=== PATIENT | female | born 1980 | race Caucasian/White ===

== ENCOUNTER → 2016-06-16 | Outpatient (CLI) | payer OTHER ==
--- NOTE | 2016-06-20 10:26 | MM ---
Reason for exam: screening (asymptomatic). Baseline mammogram. History: Patient is nulliparous. Taking progesterone for 10 years beginning at age 25. Physical Findings: Nurse did not find any significant physical abnormalities on exam. MG Screening Mammo w CAD Bilateral CC and MLO view(s) were taken. The breast tissue is extremely dense which could obscure a lesion on mammography. Benign calcifications. There is no discrete abnormality. No significant changes when compared with prior studies. ASSESSMENT: Benign, BI-RAD 2 RECOMMENDATION: Routine screening mammogram of both breasts in 1 year.
== END | disposition home or self-care (01) ==
LOC: RADMAMWWP 07:03
PROVIDERS: ATTEND Obstetrics & Gynecology
DX: Z12.31 Encounter for screening mammogram for malignant neoplasm of breast (principal)

== ENCOUNTER → 2016-11-15 | Outpatient (CLI) | payer OTHER | END | disposition home or self-care (01) | LOC: LABWHC1 13:41 | PROVIDERS: ATTEND Obstetrics & Gynecology | DX: N91.2 Amenorrhea, unspecified (principal) | CPT/HCPCS: 36415; 84702 ==

== ENCOUNTER → 2017-01-09 | Outpatient (CLI) | payer OTHER ==
--- NOTE | 2017-01-09 15:11 | US ---
EXAMINATION TYPE: US thyroid st tissue head/neck DATE OF EXAM: 01/09/2017 COMPARISON: NONE CLINICAL HISTORY: 36-year-old female R22.0 Swelling of neck. Fatigue, joint pain, neck swelling, diff iculty breathing TECHNIQUE: Multiple sonographic images of the thyroid gland are obtained. FINDINGS: GLAND SIZE: Right Lobe: 5.7 x 1.7 x 1.9 cm Overall Parenchyma: homogenous Left Lobe: 4.6 x 1.3 x 1.9 cm Overall Parenchyma: homogeneous Isthmus Thickness: 0.3 cm NODULES RIGHT: # of nodules measured on right: 0 LEFT: # of nodules measured on left: 1 1. 0.7 X 0.4 x 0.6 cm cystic lesion with some internal nodularity at the upper pole with well-defin ed margins. This nodule is wider than tall and shows intranodular vascularity. Prior size: no previous ISTHMUS: # of nodules measured in the isthmus: 0 Bilateral neck scanned, no evidence of lymphadenopathy. IMPRESSION: Borderline to mild thyromegaly. There is a solitary mixed nodule measuring 7 mm on the left. Consider short interval follow-up.
== END | disposition home or self-care (01) ==
LOC: RADUSWWP 13:37
PROVIDERS: ATTEND Family Medicine
DX: E01.0 Iodine-deficiency related diffuse (endemic) goiter (principal)
CPT/HCPCS: 76536

== ENCOUNTER 2017-05-31 01:47 | Observation (INO) | payer OTHER ==
[2017-05-31 02:40] LABS: Basophils # (A) 0.1 k/uL (0-0.2); Basophils % (A) 1 %; Eosinophils # (A) 0.2 k/uL (0-0.7); Eosinophils % (A) 2 %; HCT 40.1 % (34.0-46.0); HGB 13.9 gm/dL (11.4-16.0); Lymphocytes # (A) 2.6 k/uL (1.0-4.8); Lymphocytes % (A) 27 %; MCH 31.7 pg (25.0-35.0); MCHC 34.8 g/dL (31.0-37.0); MCV 91.1 fL (80.0-100.0); Mean Platelet Volume 6.8; Monocytes # (A) 0.6 k/uL (0-1.0); Monocytes % (A) 6 %; Neutrophils % (A) 63 %; Platelet Count 236 k/uL (150-450); RDW 11.9 % (11.5-15.5); WBC 9.6 k/uL (3.8-10.6)
[2017-05-31 02:52] LABS: ALT 25 U/L (9-52); AST 25 U/L (14-36); Alkaline Phosphatase 62 U/L (38-126); Anion Gap 14 mmol/L; Blood Urea Nitrogen 18 mg/dL (7-17); Carbon Dioxide 25 mmol/L (22-30); Chloride 103 mmol/L (98-107); Glucose 93 mg/dL (74-99); Magnesium 1.8 mg/dL (1.6-2.3); Potassium 3.8 mmol/L (3.5-5.1); Sodium 142 mmol/L (137-145); Total Bilirubin 0.9 mg/dL (0.2-1.3); Total Protein 7.9 g/dL (6.3-8.2)
[2017-05-31 02:54] LABS: D-Dimer 0.25 mg/L FEU (<0.60); INR 1.1 (<1.2); Partial Thromboplastin Time 28.2 sec (22.0-30.0); Prothrombin Time 10.6 sec (9.0-12.0)
--- NOTE | 2017-05-31 02:56 | XR ---
EXAMINATION TYPE: XR chest 2V DATE OF EXAM: 05/31/2017 COMPARISON: NONE HISTORY: Chest pain TECHNIQUE: Frontal and lateral views of the chest are obtained. FINDINGS: Heart and mediastinum are normal. Lungs are clear of infiltrate. Costophrenic angles are c lear. There are no hilar masses. Diaphragm is normal. There are chest leads. Bony thorax is intact. IMPRESSION: Normal chest
[2017-05-31 03:01] LABS: Creatine Kinase 37 U/L (30-135)
--- NOTE | 2017-05-31 03:04 | ED ---
SOB HPI - General Chief Complaint: Shortness of Breath Stated Complaint: chest pain Time Seen by Provider: 05/31/17 02:10 Source: patient Mode of arrival: ambulatory Limitations: no limitations - History of Present Illness Initial Comments: 36 years old female presented with a light headedness chest pain pain the upper back pain between the shoulder blades which started few hours ago, she denies any trauma or exertion is no shuffling. She denies any tobacco use she is on control pills past medical history is quite unremarkable she has no history of firm any blood clot in the legs or the lungs family history is unremarkable for PE and DVT as well denies any headaches no neck stiffness is she isshort-winded - Related Data Home Medications Medication Instructions Recorded Confirmed Azithromycin [Zithromax Z-pack] 0 mg PO DIRECTED 11/12/14 11/12/14 Previous Rx's Medication Instructions Recorded Ibuprofen [Motrin] 800 mg PO Q8HR PRN #20 tab 11/12/14 Ondansetron [Zofran] 4 mg PO Q8HR PRN #10 tab 11/12/14 Allergies Allergy/AdvReac Type Severity Reaction Status Date / Time No Known Allergies Allergy Verified 11/12/14 11:32 Review of Systems ROS Statement: Those systems with pertinent positive or pertinent negative responses have been documented in the HPI. ROS Other: All systems not noted in ROS Statement are negative. Past Medical History Additional Past Medical History / Comment(s): ovarian cysts, lyme disease History of Any Multi-Drug Resistant Organisms: None Reported Past Surgical History: Orthopedic Surgery Additional Past Surgical History / Comment(s): ovarian surgery Past Psychological History: No Psychological Hx Reported Smoking Status: Never smoker Past Alcohol Use History: None Reported Past Drug Use History: None Reported General Exam Limitations: no limitations Course Vital Signs 05/31/17 05/31/17 05/31/17 01:51 02:00 02:55 Temperature 98.3 F Pulse Rate 106 H 105 H Respiratory 19 18 18 Rate Blood Pressure 121/60 114/61 O2 Sat by Pulse 99 100 Oximetry EKG is normal sinus rhythm ventricular rate is 100 IN interval is 152 QRS duration is 90 QT/QTC 360/464. This EKG does not reveal any ST elevation or ST depression Is reassessed at 4:30 she still has chest pain which actually got slightly worse in the last hour and a recommendation we cannot 3 days as a chest pain and needs further investigation she's 36 she is nonsmoker family history is unremarkable for any coronary artery disease she is not diabetic she has no history of hypertension considering that him and we'll heparinize her she will be on aspirin and oxygen and as-needed basis for pain and will consult cardiology and do serial cardiac markers, these are similar discussed with the patient she is okay with Medical Decision Making - Lab Data Result diagrams: 05/31/17 02:05 05/31/17 02:05 Lab Results 05/31/17 05/31/17 05/31/17 Range/Units 02:05 02:05 02:05 WBC 9.6 (3.8-10.6) k/uL RBC 4.40 (3.80-5.40) m/uL Hgb 13.9 (11.4-16.0) gm/dL Hct 40.1 (34.0-46.0) % MCV 91.1 (80.0-100.0) fL MCH 31.7 (25.0-35.0) pg MCHC 34.8 (31.0-37.0) g/dL RDW 11.9 (11.5-15.5) % Plt Count 236 (150-450) k/uL Neutrophils % 63 % Lymphocytes % 27 % Monocytes % 6 % Eosinophils % 2 % Basophils % 1 % Neutrophils # 6.0 (1.3-7.7) k/uL Lymphocytes # 2.6 (1.0-4.8) k/uL Monocytes # 0.6 (0-1.0) k/uL Eosinophils # 0.2 (0-0.7) k/uL Basophils # 0.1 (0-0.2) k/uL PT (9.0-12.0) sec INR (<1.2) APTT (22.0-30.0) sec D-Dimer (<0.60) mg/L FEU Sodium 142 (137-145) mmol/L Potassium 3.8 (3.5-5.1) mmol/L Chloride 103 (98-107) mmol/L Carbon Dioxide 25 (22-30) mmol/L Anion Gap 14 mmol/L BUN 18 H (7-17) mg/dL Creatinine 0.80 (0.52-1.04) mg/dL Est GFR (MDRD) Af Amer >60 (>60 ml/min/1.73 sqM) Est GFR (MDRD) Non-Af >60 (>60 ml/min/1.73 sqM) Glucose 93 (74-99) mg/dL Calcium 10.0 (8.4-10.2) mg/dL Magnesium 1.8 (1.6-2.3) mg/dL Total Bilirubin 0.9 (0.2-1.3) mg/dL AST 25 (14-36) U/L ALT 25 (9-52) U/L Alkaline Phosphatase 62 (38-126) U/L Total Creatine Kinase 37 (30-135) U/L CK-MB (CK-2) <0.2 (0.0-2.4) ng/mL CK-MB (CK-2) Rel Index Troponin I <0.012 (0.000-0.034) ng/mL Total Protein 7.9 (6.3-8.2) g/dL Albumin 5.0 (3.5-5.0) g/dL 05/31/17 Range/Units 02:05 WBC (3.8-10.6) k/uL RBC (3.80-5.40) m/uL Hgb (11.4-16.0) gm/dL Hct (34.0-46.0) % MCV (80.0-100.0) fL MCH (25.0-35.0) pg MCHC (31.0-37.0) g/dL RDW (11.5-15.5) % Plt Count (150-450) k/uL Neutrophils % % Lymphocytes % % Monocytes % % Eosinophils % % Basophils % % Neutrophils # (1.3-7.7) k/uL Lymphocytes # (1.0-4.8) k/uL Monocytes # (0-1.0) k/uL Eosinophils # (0-0.7) k/uL Basophils # (0-0.2) k/uL PT 10.6 (9.0-12.0) sec INR 1.1 (<1.2) APTT 28.2 (22.0-30.0) sec D-Dimer 0.25 (<0.60) mg/L FEU Sodium (137-145) mmol/L Potassium (3.5-5.1) mmol/L Chloride (98-107) mmol/L Carbon Dioxide (22-30) mmol/L Anion Gap mmol/L BUN (7-17) mg/dL Creatinine (0.52-1.04) mg/dL Est GFR (MDRD) Af Amer (>60 ml/min/1.73 sqM) Est GFR (MDRD) Non-Af (>60 ml/min/1.73 sqM) Glucose (74-99) mg/dL Calcium (8.4-10.2) mg/dL Magnesium (1.6-2.3) mg/dL Total Bilirubin (0.2-1.3) mg/dL AST (14-36) U/L ALT (9-52) U/L Alkaline Phosphatase (38-126) U/L Total Creatine Kinase (30-135) U/L CK-MB (CK-2) (0.0-2.4) ng/mL CK-MB (CK-2) Rel Index Troponin I (0.000-0.034) ng/mL Total Protein (6.3-8.2) g/dL Albumin (3.5-5.0) g/dL Disposition Clinical Impression: Dyspnea, Chest pain Disposition: ADMITTED IP TO THIS HOSP Referrals: None,Stated [Primary Care Provider] - 1-2 days
[2017-05-31 03:14] LABS: Creatine Kinase MB <0.2 ng/mL (0.0-2.4); Troponin I <0.012 ng/mL (0.000-0.034)
[2017-05-31] MEDS ORDERED: MORPHINE SULFATE 4 MG/ML SYRINGE IVP PRN (04:37)
[2017-05-31] MEDS ORDERED: ASPIRIN 81 MG PO STA (04:37)
[2017-05-31] MEDS ORDERED: NITROGLYCERIN SL TABS 0.4 MG TAB SUBLINGUAL PRN (04:37)
[2017-05-31 07:23] VITALS: TEMP 98
[2017-05-31] MEDS ORDERED: METOPROLOL TARTRATE 25 MG TAB PO SCH (09:00)
[2017-05-31 09:11] LABS: Creatine Kinase 33 U/L (30-135)
[2017-05-31 09:24] LABS: Creatine Kinase MB <0.2 ng/mL (0.0-2.4); Troponin I <0.012 ng/mL (0.000-0.034)
[2017-05-31 10:20] VITALS: RESP 14
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
[2017-05-31 14:43] LABS: Creatine Kinase 29 U/L (30-135)
[2017-05-31 14:57] LABS: Creatine Kinase MB <0.2 ng/mL (0.0-2.4); Troponin I <0.012 ng/mL (0.000-0.034)
[2017-05-31] MEDS ORDERED: MORPHINE ORAL SOLN 10 MG/5 ML CUP PO PRN (15:01)
[2017-05-31 15:57] VITALS: BP 103/64; PULSE 86
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
[2017-06-01 00:55] LABS: Cholesterol 143 mg/dL (<200); HDL Cholesterol 68 mg/dL (40-60); LDL Cholesterol,Calculated 65 mg/dL (0-99); Triglycerides 52 mg/dL (<150)
[2017-06-01] MEDS ORDERED: ASPIRIN 325 MG TAB PO SCH (09:00)
== END 2017-05-31 15:56 | disposition home or self-care (01) ==
LOC: EC 01:47 → 3OBS 04:37
PROVIDERS: ADMIT Hospitalist; ATTEND Hospitalist
DX: R07.89 Other chest pain (principal); R10.819 Abdominal tenderness, unspecified site; M54.6 Pain in thoracic spine; R10.13 Epigastric pain; R06.02 Shortness of breath; R42 Dizziness and giddiness; R11.0 Nausea; N83.209 Unspecified ovarian cyst, unspecified side; Z86.19 Personal history of other infectious and parasitic diseases; M19.90 Unspecified osteoarthritis, unspecified site; G43.909 Migraine, unspecified, not intractable, without status migrainosus; N30.10 Interstitial cystitis (chronic) without hematuria; E03.9 Hypothyroidism, unspecified; Z79.3 Long term (current) use of hormonal contraceptives; Z83.3 Family history of diabetes mellitus
CPT/HCPCS: 99285; 96374; 36415; 93005; 85379; 80061; 80053; 82550; 82553; 83735; 84484; 85025; 85610; 85730; 71046; G0378; J2270

== ENCOUNTER → 2017-08-08 | Outpatient (CLI) | payer OTHER ==
[2017-08-08 09:16] LABS: Basophils % (A) 1 %; Eosinophils # (A) 0.1 k/uL (0-0.7); Eosinophils % (A) 2 %; HCT 46.4 % (34.0-46.0); HGB 15.2 gm/dL (11.4-16.0); Lymphocytes # (A) 1.7 k/uL (1.0-4.8); Lymphocytes % (A) 30 %; MCH 29.4 pg (25.0-35.0); MCHC 32.8 g/dL (31.0-37.0); MCV 89.6 fL (80.0-100.0); Mean Platelet Volume 7.2; Monocytes # (A) 0.3 k/uL (0-1.0); Monocytes % (A) 6 %; Neutrophils # (A) 3.4 k/uL (1.3-7.7); Neutrophils % (A) 59 %; Platelet Count 264 k/uL (150-450); RBC 5.18 m/uL (3.80-5.40); RDW 12.2 % (11.5-15.5); WBC 5.8 k/uL (3.8-10.6)
[2017-08-08 09:32] LABS: ALT 25 U/L (9-52); AST 22 U/L (14-36); Albumin 4.8 g/dL (3.5-5.0); Alkaline Phosphatase 50 U/L (38-126); Anion Gap 15 mmol/L; Blood Urea Nitrogen 13 mg/dL (7-17); Calcium 9.9 mg/dL (8.4-10.2); Carbon Dioxide 25 mmol/L (22-30); Chloride 103 mmol/L (98-107); Cholesterol 142 mg/dL (<200); Glucose 102 mg/dL (74-99); HDL Cholesterol 62 mg/dL (40-60); LDL Cholesterol,Calculated 61 mg/dL (0-99); Potassium 4.3 mmol/L (3.5-5.1); Sodium 143 mmol/L (137-145); Total Bilirubin 0.6 mg/dL (0.2-1.3); Total Protein 7.8 g/dL (6.3-8.2); Triglycerides 93 mg/dL (<150)
[2017-08-08 09:45] LABS: T4, Free (Free Thyroxine) 0.97 ng/dL (0.78-2.19)
== END | disposition home or self-care (01) ==
LOC: LABWHC1 08:40
PROVIDERS: ATTEND Family Medicine
DX: Z00.00 Encounter for general adult medical examination without abnormal findings (principal); R53.83 Other fatigue; E03.9 Hypothyroidism, unspecified; Z86.19 Personal history of other infectious and parasitic diseases
CPT/HCPCS: 36415; 80053; 80061; 82607; 84439; 84443; 85025

== ENCOUNTER → 2017-09-01 | Outpatient (CLI) | payer OTHER ==
--- NOTE | 2017-09-01 17:46 | US ---
EXAMINATION TYPE: US thyroid st tissue head/neck DATE OF EXAM: 09/01/2017 COMPARISON: NONE CLINICAL HISTORY: E04.1 SINGLE THYROID NODULE. follow up exam, on meds GLAND SIZE: Right Lobe: 5.4 x 1.6 x 1.7 cm Overall Parenchyma: homogenous Left Lobe: 4.6 x 1.4 x 1.3 cm Overall Parenchyma: homogeneous Isthmus Thickness: 0.2 cm NODULES RIGHT: # of nodules measured on right: 0 LEFT: # of nodules measured on left: 1 1. 0.7 X 0.6 x 0.5 cm mixed nodule at the mid pole with well-defined margins. This nodule is wider than tall and shows intranodular vascularity. Prior size: 0.7 x 0.4 x 0.6 cm ISTHMUS: # of nodules measured in the isthmus: 0 Bilateral neck scanned, no evidence of lymphadenopathy. IMPRESSION: Thyromegaly with stable appearing left thyroid nodule.
== END | disposition home or self-care (01) ==
LOC: RADUSWWP 15:34
PROVIDERS: ATTEND Internal Medicine
DX: E04.1 Nontoxic single thyroid nodule (principal)
CPT/HCPCS: 76536

== ENCOUNTER 2018-02-13 18:26 | Emergency (ER) | payer OTHER ==
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
[2018-02-13] MEDS ORDERED: SODIUM CHLORIDE 0.9% 1,000 ML IV STA (19:46)
[2018-02-13] MEDS ORDERED: KETOROLAC 30 MG/ML 1 ML VIAL IVP STA (19:46)
[2018-02-13 19:58] LABS: Basophils % (A) 1 %; Eosinophils # (A) 0.2 k/uL (0-0.7); Eosinophils % (A) 2 %; HCT 40.2 % (34.0-46.0); HGB 13.7 gm/dL (11.4-16.0); Lymphocytes # (A) 2.2 k/uL (1.0-4.8); Lymphocytes % (A) 30 %; MCH 31.3 pg (25.0-35.0); MCHC 34.2 g/dL (31.0-37.0); MCV 91.6 fL (80.0-100.0); Mean Platelet Volume 7.2; Monocytes # (A) 0.4 k/uL (0-1.0); Monocytes % (A) 5 %; Neutrophils # (A) 4.6 k/uL (1.3-7.7); Neutrophils % (A) 61 %; Platelet Count 232 k/uL (150-450); RBC 4.39 m/uL (3.80-5.40); RDW 12.4 % (11.5-15.5); WBC 7.6 k/uL (3.8-10.6)
[2018-02-13 20:01] LABS: Appearance,Urine Clear (Clear); Bacteria,Urine Rare /hpf; Bilirubin,Urine Negative (Negative); Blood,Urine Small (Negative); Color,Urine Yellow; Glucose,Urine (UA) Negative (Negative); Ketones,Urine 1+ (Negative); Leukocyte Esterase,Urine Negative (Negative); Mucus,Urine Moderate /hpf; Nitrite,Urine Negative (Negative); PH, Urine 5.5 (5.0-8.0); Protein,Urine Trace (Negative); RBC,Urine 4 /hpf (0-5); Specific Gravity,Urine 1.021 (1.001-1.035); Squamous Epithelial Cell,Urine 2 /hpf (0-4); Urobilinogen,Urine <2.0 mg/dL (<2.0); WBC,Urine 2 /hpf (0-5)
[2018-02-13 20:21] LABS: ALT 29 U/L (9-52); AST 26 U/L (14-36); Albumin 4.8 g/dL (3.5-5.0); Alkaline Phosphatase 38 U/L (38-126); Amylase 66 U/L (30-110); Anion Gap 10 mmol/L; Blood Urea Nitrogen 13 mg/dL (7-17); Calcium 9.7 mg/dL (8.4-10.2); Carbon Dioxide 26 mmol/L (22-30); Chloride 103 mmol/L (98-107); Glucose 87 mg/dL (74-99); Lipase 84 U/L (23-300); Potassium 3.9 mmol/L (3.5-5.1); Sodium 139 mmol/L (137-145); Total Bilirubin 0.7 mg/dL (0.2-1.3); Total Protein 7.6 g/dL (6.3-8.2)
--- NOTE | 2018-02-13 21:01 | US ---
EXAMINATION TYPE: US transvaginal DATE OF EXAM: 02/13/2018 COMPARISON: NONE CLINICAL HISTORY: Pain. Pain TECHNIQUE: Transvaginal (TV). Date of LMP: 01/24/2018 EXAM MEASUREMENTS: Uterus: 6.0 x 3.4 x 4.8 cm Endometrial Stripe: 0.5 cm Right Ovary: 4.3 x 3.0 x 3.5 cm Left Ovary: 2.9 x 1.5 x 2.5 cm 1. Uterus: Retroverted wnl 2. Endometrium: wnl 3. Right Ovary: Multiple cystic areas seen largest 2 cm. 4. Left Ovary: wnl Spectral, color and waveform doppler imaging shows good arterial and venous flow within the ovaries ; there is no evidence for ovarian torsion. 5. Bilateral Adnexa: wnl 6. Posterior cul-de-sac: wnl IMPRESSION: No acute process.
[2018-02-13 22:36] VITALS: BP 105/70; PULSE 82; RESP 18; TEMP 98
== END 2018-02-13 22:36 | disposition home or self-care (01) ==
LOC: EC 18:26
DX: N83.201 Unspecified ovarian cyst, right side (principal); E03.9 Hypothyroidism, unspecified; Z98.890 Other specified postprocedural states; Z79.899 Other long term (current) drug therapy
CPT/HCPCS: 36415; 80053; 82150; 83690; 85025; 81001; 81025; 93975; 76830; 99284; 96374; 96361; J1885

== ENCOUNTER 2018-02-14 14:17 | Emergency (ER) | payer OTHER ==
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
[2018-02-14 15:15] LABS: Basophils # (A) 0.1 k/uL (0-0.2); Basophils % (A) 1 %; Eosinophils # (A) 0.1 k/uL (0-0.7); Eosinophils % (A) 1 %; HCT 42.6 % (34.0-46.0); HGB 13.8 gm/dL (11.4-16.0); Lymphocytes # (A) 1.4 k/uL (1.0-4.8); Lymphocytes % (A) 16 %; MCH 30.3 pg (25.0-35.0); MCHC 32.5 g/dL (31.0-37.0); MCV 93.4 fL (80.0-100.0); Mean Platelet Volume 6.9; Monocytes # (A) 0.4 k/uL (0-1.0); Monocytes % (A) 4 %; Neutrophils # (A) 6.5 k/uL (1.3-7.7); Neutrophils % (A) 77 %; Platelet Count 247 k/uL (150-450); RBC 4.55 m/uL (3.80-5.40); RDW 12.3 % (11.5-15.5); WBC 8.5 k/uL (3.8-10.6)
[2018-02-14 15:27] LABS: Anion Gap 9 mmol/L; Blood Urea Nitrogen 16 mg/dL (7-17); Calcium 9.8 mg/dL (8.4-10.2); Carbon Dioxide 23 mmol/L (22-30); Chloride 109 mmol/L (98-107); Glucose 118 mg/dL (74-99); Potassium 4.1 mmol/L (3.5-5.1); Sodium 141 mmol/L (137-145)
--- NOTE | 2018-02-14 15:50 | CT ---
EXAMINATION TYPE: CT abdomen pelvis w con DATE OF EXAM: 02/14/2018 HISTORY: Right lower quadrant and right flank pain x [address] DLP: 519.5mGycm Automated Exposure Control for Dose Reduction was Utilized. CONTRAST: CT scan of the abdomen and pelvis is performed with IV Contrast, patient injected with 100 mL of Isov ue 300. COMPARISON: 11/12/2014 FINDINGS: LUNG BASES: No significant abnormality is appreciated. LIVER/GB: No significant abnormality is appreciated. No cholelithiasis. PANCREAS: No significant abnormality is seen. SPLEEN: No significant abnormality is seen. ADRENALS: No significant abnormality is seen. KIDNEYS: No significant abnormality is seen. No hydronephrosis of either kidney. BOWEL: There is a paucity of intra-abdominal fat and lack of oral contrast therefore there is limited evaluation of the appendix. Appendix is not clearly defined. Hyperdense bowel on image 55 overlying the psoas descending down to image 61 could be terminal ileum, small bowel, or appendix. No dilated l arge or small bowel is seen. UTERUS/ADNEXA: Multiple cystic and follicular changes are seen within the right ovary, appearing to h ave increased from the prior exam of 11/12/2014. Follicular changes are also seen on the left. LYMPH NODES: No greater than 1cm abdominal or pelvic lymph nodes are appreciated. OSSEOUS STRUCTURES: There is a dextroscoliotic curvature of the lumbar spine. Postsurgical change of the right femur is appreciated. OTHER: No significant additional abnormality is seen. IMPRESSION: 1. Evaluation of the appendix is suboptimal given paucity of intra-abdominal fat and lack of oral con trast. If there is further concern given the right lower quadrant pain repeat limited exam could be p erformed through the pelvis after administration of oral contrast. 2. Multiple cystic changes within the right ovary appear to have increased in size in comparison to t he prior. Alternatively pelvic ultrasound could be performed for reevaluation. Follicular changes are again noted on the left.
[2018-02-14 17:14] VITALS: BP 103/64; PULSE 73; RESP 16; TEMP 97.8
[2018-02-16 14:37] LABS: N. gonorrhoeae,PCR Negative (Neg,Equiv); Neisseria Source Cervix
[2018-02-16 14:58] LABS: C. trachomatis,PCR Negative (Neg,Equiv); Chlamydia trachomatis Source Cervix
== END 2018-02-14 17:13 | disposition home or self-care (01) ==
LOC: EC 14:17
DX: R10.31 Right lower quadrant pain (principal); Z79.899 Other long term (current) drug therapy
CPT/HCPCS: 36415; 80048; 85025; 87808; 87491; 87591; 74177; 99284; Q9967

== ENCOUNTER 2018-02-28 19:07 | Emergency (ER) | payer OTHER ==
[2018-02-28 19:12] VITALS: TEMP 99.4
[2018-02-28] MEDS ORDERED: SODIUM CHLORIDE 0.9% 1,000 ML IV ONE (19:50)
[2018-02-28] MEDS ORDERED: ONDANSETRON 4 MG/2 ML VIAL IVP STA (19:50)
[2018-02-28 20:12] LABS: Basophils # (A) 0.1 k/uL (0-0.2); Basophils % (A) 1 %; Eosinophils # (A) 0.2 k/uL (0-0.7); Eosinophils % (A) 2 %; HCT 42.8 % (34.0-46.0); HGB 14.3 gm/dL (11.4-16.0); Lymphocytes # (A) 3.3 k/uL (1.0-4.8); Lymphocytes % (A) 32 %; MCH 30.5 pg (25.0-35.0); MCHC 33.5 g/dL (31.0-37.0); MCV 90.8 fL (80.0-100.0); Mean Platelet Volume 6.8; Monocytes # (A) 0.5 k/uL (0-1.0); Monocytes % (A) 5 %; Neutrophils # (A) 6.1 k/uL (1.3-7.7); Neutrophils % (A) 59 %; Platelet Count 277 k/uL (150-450); RBC 4.71 m/uL (3.80-5.40); RDW 12.3 % (11.5-15.5); WBC 10.4 k/uL (3.8-10.6)
[2018-02-28 20:16] LABS: Appearance,Urine Cloudy (Clear); Bacteria,Urine Many /hpf; Bilirubin,Urine Negative (Negative); Blood,Urine Small (Negative); Color,Urine Light Yellow; Glucose,Urine (UA) Negative (Negative); Ketones,Urine 1+ (Negative); Leukocyte Esterase,Urine Negative (Negative); Mucus,Urine Rare /hpf; Nitrite,Urine Negative (Negative); PH, Urine 5.5 (5.0-8.0); Protein,Urine Negative (Negative); RBC,Urine 3 /hpf (0-5); Specific Gravity,Urine 1.009 (1.001-1.035); Squamous Epithelial Cell,Urine 2 /hpf (0-4); Urobilinogen,Urine <2.0 mg/dL (<2.0); WBC,Urine 4 /hpf (0-5)
[2018-02-28 20:21] LABS: ALT 26 U/L (9-52); AST 30 U/L (14-36); Albumin 5.1 g/dL (3.5-5.0); Alkaline Phosphatase 46 U/L (38-126); Anion Gap 12 mmol/L; Blood Urea Nitrogen 16 mg/dL (7-17); Carbon Dioxide 24 mmol/L (22-30); Chloride 103 mmol/L (98-107); Glucose 90 mg/dL (74-99); Potassium 3.6 mmol/L (3.5-5.1); Sodium 139 mmol/L (137-145); Total Bilirubin 0.6 mg/dL (0.2-1.3)
[2018-02-28] MEDS ORDERED: KETOROLAC 30 MG/ML 1 ML VIAL IVP STA (20:52)
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
[2018-02-28 21:19] VITALS: BP 119/78; PULSE 66; RESP 16
== END 2018-02-28 21:18 | disposition home or self-care (01) ==
LOC: EC 19:07
DX: R10.9 Unspecified abdominal pain (principal); R82.71 Bacteriuria; R11.0 Nausea; R68.83 Chills (without fever); R35.0 Frequency of micturition; N83.201 Unspecified ovarian cyst, right side; N30.10 Interstitial cystitis (chronic) without hematuria; E03.9 Hypothyroidism, unspecified; Z79.3 Long term (current) use of hormonal contraceptives; Z79.899 Other long term (current) drug therapy; Z87.442 Personal history of urinary calculi
CPT/HCPCS: 36415; 80053; 83605; 85025; 81001; 81025; 87086; 99284; 96374; 96375; 96361; J2405; J1885

== ENCOUNTER → 2018-05-28 | Outpatient (CLI) | payer OTHER ==
--- NOTE | 2018-05-28 09:12 | CT ---
EXAMINATION TYPE: CT sinus wo con DATE OF EXAM: 05/28/2018 COMPARISON: 10/08/2015 HISTORY: Acute sinusitis, Chronic sinusitis CT DLP: 564 mGycm. Automated Exposure Control for Dose Reduction was Utilized. TECHNIQUE: CT scan of the sinuses is performed without contrast, axial images are obtained, coronal r eformatted images are also reviewed. FINDINGS: There is mild right maxillary mucosal thickening along the lateral and inferior yung. Agai n there is very mild rightward nasal septal deviation. No significant mucosal hypertrophy. Right-side d nonobstructive russel bullosa is again evident. Ostiomeatal complexes are patent. Nonobstructive sm all left Damien cell is seen. Frontal recesses are patent. No significant mucosal thickening is prese nt within the ethmoid, frontal, nor sphenoid sinuses. Left maxillary sinus is also well aerated. Scan t mucosal secretions are seen in the posterior nasopharynx. Mastoid air cells and middle air cavities are well aerated. Osseous structures appear intact. Exam is not optimized for evaluation of the intracranial structures. Orbits are symmetric. Numerous s calp calcifications are typically benign. IMPRESSION: 1. Scant right maxillary mucosal thickening. Ostiomeatal complexes are patent. 2. Small nonobstructive left Damien cell and right russel bullosa. 3. Very mild rightward nasal septal deviation is appreciated on the prior.
== END ==
LOC: RADCTMAIN 08:18
PROVIDERS: ATTEND Otolaryngology
DX: J34.2 Deviated nasal septum (principal); J32.0 Chronic maxillary sinusitis
CPT/HCPCS: 70486

== ENCOUNTER → 2018-08-03 | Outpatient (CLI) | payer OTHER ==
--- NOTE | 2018-08-03 21:26 | CT ---
EXAMINATION TYPE: CT brain wo con DATE OF EXAM: 08/03/2018 COMPARISON: None HISTORY: c/o dizziness, numbness to face and arms. CT DLP: 1017.9 mGycm. Automated Exposure Control for Dose Reduction was Utilized. TECHNIQUE: CT scan of the head is performed without contrast. FINDINGS: There is no acute intracranial hemorrhage, mass effect, or midline shift identified. The ventricles and sulci are within normal limits in size. The globes are intact and the visualized sin uses are clear. IMPRESSION: No acute intracranial hemorrhage, mass effect, or midline shift is seen. If symptoms per sist consider MRI.
== END | disposition home or self-care (01) ==
LOC: RADCTMAIN 16:20
PROVIDERS: ATTEND Family Medicine
DX: R42 Dizziness and giddiness (principal); R20.2 Paresthesia of skin; H53.9 Unspecified visual disturbance
CPT/HCPCS: 70450

== ENCOUNTER → 2019-05-27 | Outpatient (CLI) | payer OTHER ==
--- NOTE | 2019-05-27 09:35 | US ---
EXAMINATION TYPE: US thyroid st tissue head/neck DATE OF EXAM: 05/27/2019 COMPARISON: US 09/01/2017 CLINICAL HISTORY: E03.9 hypothyroidism. GLAND SIZE: Right Lobe: 4.8 x 1.5 x 1.4 cm Overall Parenchyma: homogenous Left Lobe: 4.8 x 1.5 x 1.4 cm Overall Parenchyma: homogeneous Isthmus Thickness: 0.4 cm NODULES RIGHT: # of nodules measured on right: 0 LEFT: # of nodules measured on left: 0 1. 1.1 X 0.8 x 0.8 cm hypoechoic mixed nodule at the upper pole with well-defined margins; . This nodule is wider than tall and shows intranodular vascularity. Prior size: 0.7 x 0.4 x 0.6 cm ISTHMUS: # of nodules measured in the isthmus: 0 Bilateral neck scanned, no evidence of lymphadenopathy. IMPRESSION: Slight interval growth of the left mid thyroid nodule, largely cystic in comparison to th e prior ultrasound of 2018. This does not yet meet criteria for biopsy and follow-up thyroid ultrasou nd is recommended in 6-12 months.
== END | disposition home or self-care (01) ==
LOC: RADUSWWP 08:21
PROVIDERS: ATTEND Family Medicine
DX: E04.1 Nontoxic single thyroid nodule (principal); E03.9 Hypothyroidism, unspecified
CPT/HCPCS: 76536

== ENCOUNTER → 2019-10-04 | Outpatient (CLI) | payer OTHER ==
[2019-10-04 13:29] LABS: Basophils % (A) 1 %; Eosinophils # (A) 0.2 k/uL (0-0.7); Eosinophils % (A) 2 %; HCT 42.2 % (34.0-46.0); HGB 14.3 gm/dL (11.4-16.0); Lymphocytes # (A) 1.8 k/uL (1.0-4.8); Lymphocytes % (A) 28 %; MCH 31.5 pg (25.0-35.0); MCHC 33.9 g/dL (31.0-37.0); MCV 92.8 fL (80.0-100.0); Mean Platelet Volume 7.9; Monocytes # (A) 0.3 k/uL (0-1.0); Monocytes % (A) 5 %; Neutrophils # (A) 4.1 k/uL (1.3-7.7); Neutrophils % (A) 62 %; Platelet Count 249 k/uL (150-450); RBC 4.54 m/uL (3.80-5.40); RDW 12.4 % (11.5-15.5); WBC 6.6 k/uL (3.8-10.6)
[2019-10-04 18:47] LABS: African American GFR (CKD) 108.4 (60.0-200.0); Albumin 4.9 g/dL (3.80-4.90); Albumin/Globulin Ratio 2.33 (1.60-3.17); Calcium 9.7 mg/dL (8.7-10.3); Globulin 2.1 g/dL (1.6-3.3); Non-African American GFR(CKD) 93.5 (60.0-200.0); Potassium 4.1 mmol/L (3.5-5.5); Total Bilirubin 1.2 mg/dL (0.2-1.2)
== END | disposition home or self-care (01) ==
LOC: LABWHC1 12:37
PROVIDERS: ATTEND Family Medicine
DX: R11.0 Nausea (principal)
CPT/HCPCS: 36415; 80053; 81025; 82150; 83690; 85025

== ENCOUNTER → 2020-05-28 | Outpatient (CLI) | payer OTHER ==
--- NOTE | 2020-05-28 15:42 | US ---
EXAMINATION TYPE: US thyroid st tissue head/neck DATE OF EXAM: 05/28/2020 COMPARISON: NONE CLINICAL HISTORY: E04.1 thyroid nodule. GLAND SIZE: Right Lobe: 4.7 x 1.4 x 1.6 cm Overall Parenchyma: homogenous Left Lobe: 4.2 x 1.1 x 1.5 cm Overall Parenchyma: homogeneous Isthmus Thickness: 0.2 cm NODULES RIGHT: # of nodules measured on right: 0 LEFT: # of nodules measured on left: 0 1. 1.1 X 0.7 x 0.8 cm cystic or almost completely cystic, anechoic nodule, which is wider than tall, with smooth margins, with echogenic foci. Prior size: 1.1 X 0.8 x 0.8cm ISTHMUS: # of nodules measured in the isthmus: 0 Bilateral neck scanned, no evidence of lymphadenopathy. IMPRESSION: Stable cystlike area within the left lobe thyroid. 2017 ACR TI-RADS LEVEL: 0 *Highest TI-RADS level nodule reported
== END | disposition home or self-care (01) ==
LOC: RADUSWWP 15:14
PROVIDERS: ATTEND Surgery
DX: E04.1 Nontoxic single thyroid nodule (principal)
CPT/HCPCS: 76536

== ENCOUNTER 2020-10-27 | Observation (INO) | payer OTHER | END 2020-10-28 16:18 | disposition home or self-care (01) | PROVIDERS: ADMIT Family Medicine ==

== ENCOUNTER → 2021-01-04 | Outpatient (CLI) | payer OTHER ==
--- NOTE | 2021-01-05 09:02 | CT ---
EXAMINATION TYPE: CT sinus wo con DATE OF EXAM: 01/04/2021 COMPARISON: CT 05/28/2018 HISTORY: Recurrent sinus infections. CT DLP: 624.2 mGycm. Automated Exposure Control for Dose Reduction was Utilized. TECHNIQUE: CT scan of the sinuses is performed without contrast, axial images are obtained, coronal r eformatted images are also reviewed. FINDINGS: The paranasal sinuses including the frontal, ethmoid, sphenoid, and maxillary sinuses bila terally are well-aerated without abnormal opacification. The ostiomeatal complex is patent bilateral ly on the coronal images. Kayley bullosa present on the right, Damien cell again noted on the left wi th stable intimal nasal septal deviation. Visualized portion of mastoid air cells show no abnormal opacification. The globes are intact bilate rally. IMPRESSION: The sinuses are clear and the ostiomeatal complex is patent bilaterally.
== END | disposition home or self-care (01) ==
LOC: RADCTMAIN 16:57
PROVIDERS: ATTEND Otolaryngology
DX: J34.2 Deviated nasal septum (principal)
CPT/HCPCS: 70486

== ENCOUNTER 2021-03-12 14:33 | Emergency (ER) | payer OTHER ==
[2021-03-12] MEDS ORDERED: MAG HYDROX/AL HYDROX/SIMETH 30 ML, HYOSCYAMINE ELIXIR 10 ML, LIDOCAINE VISCOUS 2% 10 ML PO STA ×3 (15:44)
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
[2021-03-12 16:28] LABS: Appearance,Urine Cloudy (Clear); Bacteria,Urine Many /hpf; Bilirubin,Urine Negative (Negative); Blood,Urine Trace (Negative); Color,Urine Yellow; Glucose,Urine (UA) Negative (Negative); Ketones,Urine 3+ (Negative); Leukocyte Esterase,Urine Trace (Negative); Mucus,Urine Many /hpf; Nitrite,Urine Negative (Negative); Protein,Urine 1+ (Negative); RBC,Urine 8 /hpf (0-5); Specific Gravity,Urine 1.031 (1.001-1.035); Squamous Epithelial Cell,Urine 13 /hpf (0-4); WBC,Urine 8 /hpf (0-5)
[2021-03-12] MEDS ORDERED: CEPHALEXIN 500 MG CAP PO STA (16:59)
[2021-03-12 17:30] VITALS: BP 99/64; PULSE 98; RESP 18; TEMP 97.8
== END 2021-03-12 17:30 | disposition home or self-care (01) ==
LOC: EC 14:33
DX: N39.0 Urinary tract infection, site not specified (principal); E03.9 Hypothyroidism, unspecified; G43.909 Migraine, unspecified, not intractable, without status migrainosus; Z79.899 Other long term (current) drug therapy
CPT/HCPCS: 81001; 99284

== ENCOUNTER → 2021-06-02 | Outpatient (CLI) | payer OTHER ==
--- NOTE | 2021-06-03 09:04 | US ---
EXAMINATION TYPE: US thyroid st tissue head/neck DATE OF EXAM: 06/02/2021 COMPARISON: US Thyroid 05/28/20 CLINICAL HISTORY: 40-year-old female E04.1 Thyroid nodule. TECHNIQUE: Multiple sonographic images of the thyroid gland are obtained. FINDINGS: GLAND SIZE: Right Lobe: 4.3 x 1.0 x 1.6 cm Overall Parenchyma: homogenous Left Lobe: 4.3 x 1.6 x 1.5 cm Overall Parenchyma: homogeneous Isthmus Thickness: 0.26 cm NODULES RIGHT: # of nodules measured on right: 0 LEFT: # of nodules measured on left: 1 1. 1.5 X 0.9 x 0.9 cm, upper mid, benign colloid cyst. Prior size: 1.1 x 0.7 x 0.8 cm ISTHMUS: # of nodules measured in the isthmus: 0 Bilateral neck scanned, no evidence of lymphadenopathy. IMPRESSION: 1. A benign colloid cyst in the left lobe is slightly larger at 15 x 9 mm (versus 11 x 8 mm, previous ly). 2. Otherwise, no discrete nodules.
== END | disposition home or self-care (01) ==
LOC: RADUSWWP 17:01
PROVIDERS: ATTEND Surgery
DX: E04.1 Nontoxic single thyroid nodule (principal)
CPT/HCPCS: 76536

== ENCOUNTER → 2021-11-26 | Outpatient (CLI) | payer BC ==
--- NOTE | 2021-11-29 08:07 | MM ---
Reason for Exam: Screening (asymptomatic). Last mammogram was performed 5 year(s) and 6 month(s) ago. Patient History: Menarche at age 14. Patient has no children. Currently using Hormonal Contraceptives, beginning at age 25 for 10 years. Last menstrual period: 10/08/2021 Risk Values: Jaycee 5 year model risk: 0.6%. NCI Lifetime model risk: 11.1%. Prior Study Comparison: 06/16/2016 Bilateral Screening Mammogram, [facility]. Tissue Density: The breast tissue is extremely dense which could obscure a lesion on mammography. Findings: Analyzed By CAD. There is no suspicious group of microcalcifications or new suspicious mass in either breast. Benign calcifications demonstrated within both breasts. Overall Assessment: Benign, BI-RAD 2 Management: Screening Mammogram of both breasts in 1 year. A clinical breast exam by your physician is recommended on an annual basis and results should be correlated with mammographic findings. Electronically signed and approved by: Basilio Hollingsworth D.O.
== END | disposition home or self-care (01) ==
LOC: RADMAMWWP 11:01
PROVIDERS: ATTEND Obstetrics & Gynecology
DX: Z12.31 Encounter for screening mammogram for malignant neoplasm of breast (principal)
CPT/HCPCS: 77067

== ENCOUNTER → 2022-11-29 | Outpatient (CLI) | payer BC ==
--- NOTE | 2022-11-30 23:32 | MM ---
Reason for Exam: Screening (asymptomatic). Last screening mammogram was performed 12 month(s) ago. Patient History: Menarche at age 14. Patient has no children. Currently using Hormonal Contraceptives, beginning at age 25 for 10 years. Risk Values: Jaycee 5 year model risk: 0.7%. NCI Lifetime model risk: 11.0%. Prior Study Comparison: 06/16/2016 Bilateral Screening Mammogram, [facility]. 11/26/2021 Bilateral MG screening mammo w CAD, [facility]. Tissue Density: The breast tissue is extremely dense which could obscure a lesion on mammography. Findings: Analyzed By CAD. Benign dermal calcifications medially. There is no suspicious group of microcalcifications or new suspicious mass in either breast. Overall Assessment: Benign, BI-RAD 2 Management: Screening Mammogram of both breasts in 1 year. Given the patient's extremely dense breast tissue, consideration can be given to supplementary screening with breast ultrasound. Patient should continue monthly self-breast exams. A clinical breast exam by your physician is recommended on an annual basis. This exam should not preclude additional follow-up of suspicious palpable abnormalities. Note on Jaycee scores and lifetime risk: 1. A Jaycee score greater than 3% is considered moderate risk. If this is the case, consider specialist referral to assess eligibility for a risk reducing agent. 2. If overall lifetime risk for the development of breast cancer is 20% or higher, the patient may qualify for future screening with alternating mammogram and breast MRI. Electronically signed and approved by: Kolby Pedraza M.D. Radiologist
== END | disposition home or self-care (01) ==
LOC: RADMAMWWP 11:37
PROVIDERS: ATTEND Obstetrics & Gynecology
DX: Z12.31 Encounter for screening mammogram for malignant neoplasm of breast (principal)
CPT/HCPCS: 77063; 77067

== ENCOUNTER → 2023-02-22 | Outpatient (CLI) | payer BC ==
[2023-02-22 16:38] LABS: Ferritin 50.7 ng/mL (10.0-291.0); T4, Free (Free Thyroxine) 1.39 ng/dL (0.80-1.80)
[2023-02-22 16:54] LABS: Homocysteine 8.27 UMOL/L (4.00-14.00)
[2023-02-22 16:55] LABS: Thyroid Peroxidase Antibodies <9.0 U/mL (0.0-33.0)
[2023-02-23 14:51] LABS: Thyroid Stim Immun Quant <0.10 IU/L (<0.10)
== END | disposition home or self-care (01) ==
LOC: LABWHC1 12:08
PROVIDERS: ATTEND Family Medicine
DX: E72.11 Homocystinuria (principal); E55.9 Vitamin D deficiency, unspecified; R53.83 Other fatigue; R94.6 Abnormal results of thyroid function studies; E56.0 Deficiency of vitamin E; E64.2 Sequelae of vitamin C deficiency; E50.9 Vitamin A deficiency, unspecified; D51.9 Vitamin B12 deficiency anemia, unspecified
CPT/HCPCS: 36415; 82306; 82397; 82607; 82728; 82746; 83090; 83540; 84432; 84436; 84439; 84443; 84445; 84479; 84480; 84481; 84482; 84590; 86376

== ENCOUNTER → 2023-12-06 | Outpatient (CLI) | payer BC ==
--- NOTE | 2023-12-19 15:09 | P.PN ---
Progress Note - Text Progress Note Date: 12/19/23 OUTPATIENT FOLLOW-UP NOTE TEST(S)/RESULTS: Test results from 12/06/2023 include negative Pap smear and negative high risk HPV testing. METHOD OF NOTIFICATION: The patient was notified by phone on 12/19/2023. PATIENT COMMENTS: She states she was able to picker/puller her control pills. DIAGNOSIS: Negative Pap smear cotest. DISCUSSION: Screening mammogram done on 12/06/2023 is still pending. The patient understands that this may be longer because of computer issues that were experienced by Sonja Elam. She should receive the results in the mail. She was instructed to call me after 2 weeks if she still has not received mammogram results. PLAN: As above. She was advised to return in one year for her annual well woman exam.
--- NOTE | 2023-12-26 12:46 | MM ---
Reason for Exam: Screening (asymptomatic). Last screening mammogram was performed 12 month(s) ago. Patient History: Menarche at age 14. Patient has no children. Currently using Hormonal Contraceptives, beginning at age 25 for 10 years. Risk Values: Jaycee 5 year model risk: 0.7%. NCI Lifetime model risk: 10.9%. Prior Study Comparison: 06/16/2016 Bilateral Screening Mammogram, [facility]. 11/26/2021 Bilateral MG screening mammo w CAD, [facility]. 11/29/2022 Bilateral MG 3D screening mammo w/cad, [facility]. Tissue Density: The breasts are extremely dense, which lowers the sensitivity of mammography. Findings: Analyzed By CAD. There is no suspicious group of microcalcifications or new suspicious mass in either breast. 9 appearing calcifications. Overall Assessment: Benign, BI-RAD 2 Management: Screening Mammogram of both breasts in 1 year. . Patient should continue monthly self-breast exams. A clinical breast exam by your physician is recommended on an annual basis. This exam should not preclude additional follow-up of suspicious palpable abnormalities. Note on Jaycee scores and lifetime risk: 1. A Jaycee score greater than 3% is considered moderate risk. If this is the case, consider specialist referral to assess eligibility for a risk reducing agent. 2. If overall lifetime risk for the development of breast cancer is 20% or higher, the patient may qualify for future screening with alternating mammogram and breast MRI. Electronically signed and approved by: Joaquín Cronin M.D. Radiologis
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
--- NOTE | 2024-01-19 15:07 | WWHP ---
[facility] - HISTORY AND PHYSICAL CHIEF COMPLAINT: The patient is here for her routine gynecologic exam and mammogram. HPI: This is a 43-year-old G0 with an LMP of 11/16/2023. The patient is here to establish with this office. She previously saw Dr. Cuauhtemoc Layton for her gynecologic care. It has been about 1 year since she last saw him and she states she had a Pap smear done 2 years ago and it was normal at that time. She has been on progestin only control pills for many years. She previously took a combination oral contraception in her 20s, but had estrogen related side effects including weight gain and depression. She states after that she used progestin only control pills for many years without problems. She states she infrequently has light menstrual periods. During the past 2 months, she had a light period and also has had some cramps during the period as well as after the menstrual period. She is otherwise without gynecologic complaints and would like to continue on with oral contraception. She is not interested in getting at this time. PAST MEDICAL HISTORY: Gastroesophageal reflux disease and environmental allergies. MEDICATIONS: 1. Norlyda oral contraception 1 daily. 2. Omeprazole 10 mg daily. 3. Zyrtec 10 mg daily. PAST SURGICAL HISTORY: Laparoscopic ovarian cystectomy in her 20s. 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 SOCIAL HISTORY: She denies tobacco and drug use. She has about 2 alcohol containing drinks per month. She has been since 2009. She works remotely for the [employer] in [employer]. FAMILY HISTORY: Mother has early dementia. Father has diabetes. She denies family history of cancer of breast, uterus, ovaries, or colon. REVIEW OF SYSTEMS: Her weight has been stable. She denies respiratory, cardiac, or GI problems. PHYSICAL EXAMINATION: VITAL SIGNS: Blood pressure 96/64, height 5 feet 7 inches, weight 149 pounds, BMI 23. Temperature 98.3, pulse 79, pulse oximeter 97%. GENERAL: This is a well-developed, well-nourished, white female, who is alert and oriented x3, in no acute distress. HEENT: Within normal limits. NECK: Supple without mass or thyromegaly. CHEST AND LUNGS: Clear to auscultation. HEART: Regular rate and rhythm. BREASTS: Without mass or discharge. Axillary exam is negative for adenopathy. ABDOMEN: Soft, nontender, without palpable masses. PELVIC: External genitalia are within normal limits. Cervix and vagina appear normal. There is no unusual discharge. There is no evidence of prolapse. The uterus is mid positioned, nongravid size, and nontender. There are no palpable adnexal masses or tenderness. RECTAL: Negative for mass or tenderness and is negative for occult blood. EXTREMITIES: Nontender. IMPRESSION: 1. A 43-year-old premenopausal female, doing well with oral contraception. She currently is using Norlyda which is a progestin only pill. 2. Infrequent light menstrual periods on the progestin only control pill. PLAN: 1. Pap smear co-test was performed. 2. Self breast examination was discussed. The symptoms of inflammatory breast cancer were reviewed with the patient. 3. Screening mammogram will be done today. 4. Osteoporosis prevention was discussed. 5. The prescription for Norlyda control pills, will be sent to [facility] pharmacy on [facility] in [address] [place] [address]. She will be given 84 pills at a time. She is to take 1 by mouth daily. She will be given 4 refills on this. 6. She will return in 1 year for her well-woman examination. MMODL / IJN: [id number] /
== END | disposition home or self-care (01) ==
LOC: RADMAMWWP 12:00
PROVIDERS: ATTEND Obstetrics & Gynecology
DX: Z12.31 Encounter for screening mammogram for malignant neoplasm of breast (principal)
CPT/HCPCS: 77063; 77067